=== PATIENT | female | born 1960 | race Two or more races ===

== ENCOUNTER 2016-12-11 19:28 | Emergency (ER) | payer OTHER ==
--- NOTE | ~2016-12-11 | CR63 ---
[facility] A Service of [facility] & [facility] RADIOLOGY TEXT RESULTS PATIENT: BALJIT PIERSON LOCATION: [facility] : 64 UNIT #: [id number] AGE: [address]: Shivam Samayoa MD SEX: F ORDER DR: [id number] [facility] [address] [facility] [place], [place] [address] [id number] MR#: [id number] Acc #: [id number] NAME: BALJIT PIERSON : 1960 SEX: F STUDY DATE/TIME: 12/11/2016 19:42 UNIT: [facility] ROOM: STUDY DESCRIPTION: CR Chest 2 View Attending Physician: Shivam Samayoa M.D. Ordering Physician: Shivam Samayoa M.D. Primary Care Physician: Tristan Aranda M.D. MEDICAL IMAGING REPORT This report is preliminary unless electronic signature is present EXAM PA and lateral views of the chest COMPARISON None INDICATION 56-year-old female with cough for 1 week. FINDINGS Cardiomediastinal silhouette is normal. No pneumothorax or pleural effusion. Mild multilevel anterior osteophyte formation of the thoracic spine. Normal cardiomediastinal silhouette. Chronic-appearing oval calcium density near the rotator cuff insertion of the right humerus measuring up 4.0 mm, possibly representing joint body or ossicle or other calcification of the rotator cuff. IMPRESSION No acute radiographic abnormality of the chest. Dictated by... Elieser Payne M.D. THIS IS AN ELECTRONICALLY VERIFIED REPORT Elieser Payne M.D. at 12/12/2016 10:48 AM Brandin TD: 12/12/2016 08:18 JOB #: [id number] MEDICAL IMAGING REPORT Page 1 of 1 COPY
[2016-12-11 20:24] LABS: BASOPHIL% 0.3 % (0-2.5); EOSINOPHIL# 0.1 X10e3 (0-0.7); EOSINOPHIL% 0.9 % (0.0-7.0); HEMATOCRIT 39.4 % (35.0-45.0); HEMOGLOBIN 13.3 gm/dL (12.0-16.0); LYMPHOCYTE# 1.4 X10e3 (1.0-3.5); LYMPHOCYTE% 14.8 % (17.0-45.0); MEAN CELL VOLUME 82.2 FL (83-96); MEAN CORPUSCULAR HEMOGLOBIN 27.8 PG (28-34); MEAN CORPUSCULAR HGB CONC 33.8 g/dL (30-36); MEAN PLATELET VOLUME 8.4 FL (6.5-11.5); MONOCYTE# 0.7 X10e3 (0-1.0); MONOCYTE% 7.2 % (3.0-12.0); NEUTROPHIL# 7.3 X10e3 (1.5-7.1); NEUTROPHIL% 76.8 % (40-75); PLATELET COUNT 251 X10e3 (140-420); RED BLOOD COUNT 4.79 X10e (3.90-5.30); RED CELL DISTRIBUTION WIDTH 13.3 % (11.0-15.5); WHITE BLOOD COUNT 9.5 X10e3 (4.0-10.5)
[2016-12-11 20:28] LABS: DIFF IND NO
[2016-12-11 20:40] LABS: URINE SOURCE CLEAN CATCH
[2016-12-11 20:44] LABS: URINE APPEARANCE CLEAR; URINE BILIRUBIN NEG (NEG); URINE BLOOD NEG (NEG); URINE COLOR YELLOW; URINE GLUCOSE NEG (NEG); URINE KETONE NEG (NEG); URINE LEUKOCYTE ESTERASE 1+ (NEG); URINE NITRATE NEG (NEG); URINE PROTEIN NEG (NEG); URINE SPECIFIC GRAVITY 1.016 (1.003-1.035); URINE UROBILINOGEN 0.2 MG/DL (NEG)
[2016-12-11 20:51] LABS: URINE BACTERIA AUWI NEG (NEGATIVE); URINE SQUAMOUS EPITHELIAL CELL OCC /[HPF]; UWBCS1 AUWI 0-2 (0-5)
[2016-12-11 20:53] LABS: ALBUMIN SERUM 4.5 g/dL (3.5-5.0); BILIRUBIN, DIRECT 0.1 mg/dL (0.0-0.2); BILIRUBIN,INDIRECT 0.3 mg/dL (0.0-0.9); BILIRUBIN,TOTAL 0.4 mg/dL (0.2-2.0); BUN/CREATININE RATIO 18.33; CALCIUM SERUM 9.6 mg/dL (8.4-10.2); CREATININE SERUM 0.6 mg/dL (0.6-1.4); GLOM FILT RATE Estimated 103.3 mL/min (>60); PROTEIN TOTAL SERUM 7.6 g/dL (6.0-8.3)
[2016-12-11 20:55] LABS: CULTURE INDICATED? NO
== END 2016-12-11 22:09 | disposition home or self-care (01) ==
LOC: CED 19:28
PROVIDERS: Emergency Medicine
DX: R19.7 Diarrhea, unspecified (principal); J40 Bronchitis, not specified as acute or chronic; K21.9 Gastro-esophageal reflux disease without esophagitis; Z98.890 Other specified postprocedural states
CPT/HCPCS: 36415; 71020; 80048; 80076; 81003; 82150; 83690; 85025; 94640; 96361; 96374; 96375; 99284; J2270; J2405

== ENCOUNTER → 2017-05-25 | Outpatient (CLI) | payer OTHER ==
--- NOTE | ~2017-05-25 | MY29 ---
[facility] A Service of [facility] RADIOLOGY TEXT RESULTS PATIENT: BALJIT PIERSON LOCATION: [facility] : 64 UNIT #: [id number] AGE: [address]: Tristan Aranda MD SEX: F ORDER DR: [id number] [facility] [address] [facility]. [place], [place] [address] [id number] O MR#: [id number] Acc #: [id number] NAME: BALJIT PIERSON : 1960 SEX: F STUDY DATE/TIME: 05/25/2017 9:11 UNIT: [facility] ROOM: STUDY DESCRIPTION: MY MANDI SCREENING W/ CAD BILAT Attending Physician: Tristan Aranda M.D. Referring Physician: Tristan Aranda M.D. Ordering Physician: Tristan Aranda M.D. Primary Care Physician: Tristan Aranda M.D. MEDICAL IMAGING REPORT This report is preliminary unless electronic signature is present EXAM Digital screening mammogram, 05/25/2017, [facility]. HISTORY 56-year-old woman, positive family history. Annual screen. COMPARISON Comparison mammograms 09/28/2009, 04/28/2013, 12/14/2014, 02/21/2016. TECHNIQUE Digital imaging of each breast was completed utilizing screening protocol. Review includes FDA-approved CAD device. FINDINGS Breast parenchyma is heterogeneous and remains asymmetric with the parenchymal dominance stable in the left breast. Dominance projects in the upper subareolar location in the upper/outer quadrant of the left breast. I see no developing mass and no suspicious mass characteristics. There are no interval occurring microcalcifications and no architectural deformity. IMPRESSION Benign mammogram. Stable benign dominance left breast. Annual screening recommended. BIRADS 2. Patients over the age of 40 are entered into a reminder system with target due date for the next mammogram. A result letter will also be sent to the patient. BIRADS: 2 Benign findings. Dictated by... [facility] A Service of [facility] RADIOLOGY TEXT RESULTS PATIENT: BALJIT PIERSON LOCATION: [facility] : 64 UNIT #: [id number] AGE: [address]: Tristan Aranda MD SEX: F ORDER DR: Gene Alvarenga M.D. THIS IS AN ELECTRONICALLY VERIFIED REPORT Gene Alvarenga M.D. at 05/25/2017 1:01 PM DANIEL/jhonatan TD: 05/25/2017 12:43 JOB #: [id number] MEDICAL IMAGING REPORT Page 1 of 1 COPY
== END | disposition home or self-care (01) ==
LOC: CWCC 08:38
DX: Z12.31 Encounter for screening mammogram for malignant neoplasm of breast (principal); Z80.3 Family history of malignant neoplasm of breast
CPT/HCPCS: G0202